=== PATIENT | female | born 1930 | race African-American/Black ===

== ENCOUNTER 2016-11-06 13:43 | Inpatient (IN) | payer MEDICARE, BC ==
[~2016-11-06] VITALS: Ht 160 cm; Wt 86.6 kg
[~2016-11-06 13:43] MED LIST: ALD50 PO; ASPI-1159 PO; COR3 PO; FURO40TA5 PO; LOSA25TA12 PO; POTA20TA75 PO
[2016-11-06 15:35] LABS: BASOPHILS % 0.5 % (0.0-2.0); EOSINOPHILS % 0.5 % (0.0-5.0); HEMATOCRIT. 36.9 % (36.0-48.0); HEMOGLOBIN. 12.2 g/dL (12.0-16.0); LYMPHOCYTES % 15.1 % (20.0-50.0); MEAN CORPUSCULAR HEMOGLOBIN 29.5 pg (28.0-32.0); MEAN CORPUSCULAR VOLUME 89.5 fL (81.0-99.0); MEAN PLATELET VOLUME 9.3 fl (7.4-10.4); MONOCYTES % 5.5 % (2.0-8.0); NEUTROPHILS % 78.4 % (40.0-76.0); PLATELET 157 x1000/uL (130-400); RED BLOOD CELL COUNT 4.12 mill/uL (4.2-5.4); RED CELL DISTRIBUTION WIDTH 15.2 % (11.6-14.6)
[2016-11-06 15:36] LABS: CLARITY URINE CLEAR (CLEAR); COLOR URINE YELLOW (YELLOW); GLUCOSE URINE NEGATIVE (NEGATIVE); KETONES URINE NEGATIVE (NEGATIVE); LEUKOCYTE ESTERASE URINE NEGATIVE (NEGATIVE); NITRITE URINE NEGATIVE (NEGATIVE); OCCULT BLOOD URINE NEGATIVE (NEGATIVE); PH URINE 6.5 (4.5-8.0); PROTEIN URINE NEGATIVE (NEGATIVE); SPECIFIC GRAVITY URINE 1.008 (1.005-1.030); UROBILINOGEN URINE 0.2 E.U./dL (0.2-1.0)
[2016-11-06 15:36] LABS: INR 1.1; PARTIAL THROMBOPLASTIN TIME 28.9 sec (24.0-34.0); PROTHROMBIN TIME 11.3 sec
[2016-11-06 15:38] LABS: CHLORIDE 103 mEq/L (98-107)
[2016-11-06 15:42] LABS: CARBON DIOXIDE 26 mEq/L (21-32)
[2016-11-06 15:50] LABS: CREATINE KINASE 105 IU/L (26-192)
[2016-11-06 15:51] LABS: CREATINE KINASE MB FRACTION 1.2 ng/mL (0.5-3.6)
[2016-11-06] MEDS: PANTOPRAZOLE SODIUM 40 MG/VIAL IV SCH (16:15)
[2016-11-06] MEDS ORDERED: CLONIDINE 0.1MG TABLET PO PRN (16:15)
[2016-11-06] MEDS ORDERED: ACETAMINOPHEN 325MG TABLET PO PRN (16:15)
[2016-11-06] MEDS ORDERED: IPRATROPIUM/ALBUTEROL 0.5-3(2.5)MG/3ML NEB INH PRN (16:15)
[2016-11-06] MEDS ORDERED: ONDANSETRON HCL 4MG/2ML VIAL IV PRN (16:15)
[2016-11-06] MEDS ORDERED: SODIUM CHLORIDE 0.9% 250 ML IV ONE (16:17)
[2016-11-06] MEDS: HYDROCODONE/ACETAMINOPHEN 5/325MG TABLET PO PRN (19:18)
[2016-11-06 20:00] VITALS: BP 117/66
[2016-11-06 21:00] VITALS: BP 117/66
[2016-11-06] MEDS ORDERED: HYDR-4005 PO (22:15)
[2016-11-06] MEDS ORDERED: [UNRECOGNIZED DRUG - CODE] PO (22:15)
[2016-11-06] MEDS ORDERED: PREG75CA PO (22:17)
[2016-11-06] MEDS: METRONIDAZOLE 500 MG PREMIX 100 ML IV SCH (23:18)
[2016-11-07] VITALS: BP 92/52
[2016-11-07] MEDS ORDERED: SODIUM CHLORIDE 0.9% 250 ML IV NR ×2 (03:30→04:30)
[2016-11-07 04:00] VITALS: BP 96/57
[2016-11-07] MEDS: METRONIDAZOLE 500 MG PREMIX 100 ML IV SCH ×2 (06:49→14:00)
[2016-11-07 06:54] LABS: BASOPHILS % 0.6 % (0.0-2.0); HEMATOCRIT. 32.4 % (36.0-48.0); LYMPHOCYTES % 24.7 % (20.0-50.0); MEAN CORPUSCULAR HEMOGLOBIN 30.1 pg (28.0-32.0); MEAN CORPUSCULAR VOLUME 88.9 fL (81.0-99.0); MEAN PLATELET VOLUME 9.9 fl (7.4-10.4); MONOCYTES % 8.3 % (2.0-8.0); NEUTROPHILS % 65.4 % (40.0-76.0); PLATELET 136 x1000/uL (130-400); RED BLOOD CELL COUNT 3.64 mill/uL (4.2-5.4); RED CELL DISTRIBUTION WIDTH 15.5 % (11.6-14.6)
[2016-11-07 07:36] LABS: T4 FREE 0.98 ng/dL (0.76-1.46); TROPONIN I 0.04 ng/mL (0.00-0.04)
[2016-11-07 08:00] VITALS: BP 97/50
[2016-11-07] MEDS: PANTOPRAZOLE SODIUM 40 MG/VIAL IV SCH (08:44)
[2016-11-07] MEDS: HYDROCODONE/ACETAMINOPHEN 5/325MG TABLET PO PRN (08:58)
[2016-11-07] MEDS ORDERED: POTASSIUM CHLORIDE 20MEQ TABLET SR PO SCH (09:00)
[2016-11-07] MEDS ORDERED: FUROSEMIDE 40MG TABLET PO SCH (09:00)
[2016-11-07] MEDS ORDERED: CARVEDILOL 3.125 MG TABLET PO SCH (09:00)
[2016-11-07 12:00] VITALS: BP 101/51
[2016-11-07 13:36] VITALS: BP 101/51
[2016-11-07 16:00] VITALS: BP 121/67
== END 2016-11-07 14:27 | disposition home or self-care (01) | DRG 378 ==
LOC: ER 15:19 → 5WST 16:29 → ENRESERV 18:09
PROVIDERS: ADMIT Internal Medicine; ATTEND Internal Medicine
DX: K92.2 Gastrointestinal hemorrhage, unspecified (principal); I42.0 Dilated cardiomyopathy; K52.9 Noninfective gastroenteritis and colitis, unspecified; E78.5 Hyperlipidemia, unspecified; I45.10 Unspecified right bundle-branch block; I50.9 Heart failure, unspecified; M54.30 Sciatica, unspecified side; K21.9 Gastro-esophageal reflux disease without esophagitis; M19.90 Unspecified osteoarthritis, unspecified site; Z96.659 Presence of unspecified artificial knee joint; G62.9 Polyneuropathy, unspecified; M51.37 Other intervertebral disc degeneration, lumbosacral region; Z90.49 Acquired absence of other specified parts of digestive tract; Z88.8 Allergy status to other drugs, medicaments and biological substances; Z79.82 Long term (current) use of aspirin; Z79.899 Other long term (current) drug therapy
CPT/HCPCS: 36415; 71010; 74176; 80048; 80053; 80061; 81003; 82550; 82553; 83690; 84439; 84443; 84484; 85025; 85610; 85730; 86850; 86900; 87086; 93005; 96360; 96361; 99285; C9113; J3490; J7050

== ENCOUNTER 2017-05-22 13:40 | Inpatient (IN) | payer MEDICARE, BC ==
[~2017-05-22] VITALS: Ht 162.6 cm; Wt 71.2 kg
[~2017-05-22 13:40] MED LIST changes: +ALBU18HF2 IH; -FURO40TA5 PO; +HYDR-4005 PO; -LOSA25TA12 PO; +MULT-1146 PO; +POTA20TA12 PO; -POTA20TA75 PO; +PREG75CA PO; +PROM6.25 PO; +SACU1TAB PO
[2017-05-22 14:30] VITALS: BP 70/48
[2017-05-22 14:45] VITALS: BP 74/48
[2017-05-22] MEDS ORDERED: IPRATROPIUM/ALBUTEROL 0.5-3(2.5)MG/3ML NEB HHN PRN (15:00)
[2017-05-22] MEDS ORDERED: ONDANSETRON 4MG ODT PO PRN (15:00)
[2017-05-22] MEDS ORDERED: ACETAMINOPHEN 325MG TABLET PO PRN (15:00)
[2017-05-22] MEDS ORDERED: BISACODYL 5MG TABLET PO PRN (15:00)
[2017-05-22] MEDS ORDERED: GUAIFENESIN/CODEINE 200-20MG/10ML UDC PO PRN (15:00)
[2017-05-22] MEDS ORDERED: THROAT LOZENGES-BENZOCAINE/MENTH/CETYLPYRD CL LOZENGES MM PRN (15:00)
[2017-05-22] MEDS ORDERED: MAGNESIUM/ALUMINUM HYDROXIDE/SIMETHICONE 30ML UDC PO PRN (15:00)
[2017-05-22] MEDS ORDERED: METHYLPREDNISOLONE SOD SUCC 40 MG/ML VIAL IV SCH (15:15)
[2017-05-22] MEDS: SODIUM CHLORIDE 0.45% 1,000 ML IV SCH (15:35)
[2017-05-22 16:00] VITALS: BP 80/52
[2017-05-22 18:00] VITALS: BP 83/54
[2017-05-22] MEDS: DOCUSATE SODIUM 100MG CAPSULE PO SCH (18:17)
[2017-05-22 20:00] VITALS: BP 77/45
[2017-05-22] MEDS ORDERED: CEFEPIME 1,000 MG in DEXTROSE 5% WATER 50 ML IV SCH ×4 (21:00)
[2017-05-22] MEDS ORDERED: SODIUM CHLORIDE 0.9% 1000ML BAG (SEPSIS BOLUS) IV NR (22:00)
[2017-05-23 08:38] VITALS: BP 78/44
[2017-05-23 08:45] VITALS: BP_SYST 63; BP_SYST 64; BP_SYST 70; BP_DIAS 38; BP_DIAS 45; BP_DIAS 46
[2017-05-23] MEDS ORDERED: ENOXAPARIN 40MG/0.4ML SYR SUBCUT SCH (09:00)
[2017-05-23] MEDS ORDERED: METHYLPREDNISOLONE SOD SUCC 40 MG/ML VIAL IV SCH (09:00)
[2017-05-23] MEDS ORDERED: ASPIRIN 81MG TABLET PO SCH (09:00)
[2017-05-23] MEDS ORDERED: MEGESTROL ACETATE 400 MG/10 ML UDC PO SCH (09:00)
[2017-05-23] MEDS: SODIUM CHLORIDE 0.45% 1,000 ML IV SCH (09:04)
[2017-05-23] MEDS: DOCUSATE SODIUM 100MG CAPSULE PO SCH (09:04)
[2017-05-23 09:15] VITALS: BP 71/38
[2017-05-23 09:56] LABS: BASOPHILS % 0.4 % (0.0-2.0); EOSINOPHILS % 0.1 % (0.0-5.0); HEMATOCRIT. 44.2 % (36.0-48.0); HEMOGLOBIN. 14.6 g/dL (12.0-16.0); LYMPHOCYTES % 12.5 % (20.0-50.0); MEAN CORPUSCULAR VOLUME 84.6 fL (81.0-99.0); MEAN PLATELET VOLUME 10.8 fl (7.4-10.4); MONOCYTES % 6.4 % (2.0-8.0); NEUTROPHILS % 80.6 % (40.0-76.0); PLATELET 182 x1000/uL (130-400); RED BLOOD CELL COUNT 5.22 mill/uL (4.2-5.4); RED CELL DISTRIBUTION WIDTH 14.9 % (11.6-14.6)
[2017-05-23 10:08] LABS: CHLORIDE 95 mEq/L (98-107)
[2017-05-23 10:50] VITALS: BP 78/48
[2017-05-23 11:14] VITALS: BP 78/48
[2017-05-23 15:16] LABS: HEMATOCRIT. 41.8 % (36.0-48.0); HEMOGLOBIN. 13.8 g/dL (12.0-16.0); MEAN CORPUSCULAR HEMOGLOBIN 27.8 pg (28.0-32.0); MEAN CORPUSCULAR VOLUME 84.1 fL (81.0-99.0); PLATELET 174 x1000/uL (130-400); RED BLOOD CELL COUNT 4.97 mill/uL (4.2-5.4); RED CELL DISTRIBUTION WIDTH 14.8 % (11.6-14.6)
[2017-05-23 15:28] LABS: TROPONIN I 0.09 ng/mL (0.00-0.04)
[2017-05-23 17:23] LABS: ATYPICAL LYMPHOCYTES 2; PLATELET ESTIMATE NORMAL
== END 2017-05-23 12:10 | disposition short-term general hospital (02) | DRG 193 ==
PROVIDERS: ADMIT Psychiatry & Neurology Neurology; ATTEND Internal Medicine
DX: J18.9 Pneumonia, unspecified organism (principal); I50.23 Acute on chronic systolic (congestive) heart failure; E87.2 Acidosis; I95.9 Hypotension, unspecified; E87.5 Hyperkalemia; E87.1 Hypo-osmolality and hyponatremia; G62.9 Polyneuropathy, unspecified; I11.0 Hypertensive heart disease with heart failure; I42.0 Dilated cardiomyopathy; J44.0 Chronic obstructive pulmonary disease with (acute) lower respiratory infection; N39.0 Urinary tract infection, site not specified; R53.81 Other malaise; Z96.652 Presence of left artificial knee joint; I27.29 Other secondary pulmonary hypertension; I27.81 Cor pulmonale (chronic); I45.10 Unspecified right bundle-branch block; M13.0 Polyarthritis, unspecified; Z79.82 Long term (current) use of aspirin; Z79.899 Other long term (current) drug therapy; Z88.8 Allergy status to other drugs, medicaments and biological substances
CPT/HCPCS: 36415; 80048; 80053; 84484; 85007; 85025; 85027; 93005; 97162; J0692; J1650; J2920; J7030; J7060

== ENCOUNTER 2018-03-10 18:51 | Inpatient (IN) | payer MEDICARE, BC ==
[~2018-03-10] VITALS: Ht 162.6 cm; Wt 72.6 kg
[~2018-03-10 18:51] MED LIST changes: -ALD50 PO; -COR3 PO; -PROM6.25 PO; -SACU1TAB PO
[2018-03-10 20:46] LABS: BASOPHILS % 1.3 % (0.0-2.0); EOSINOPHILS % 0.3 % (0.0-5.0); HEMATOCRIT. 41.5 % (36.0-48.0); HEMOGLOBIN. 13.5 g/dL (12.0-16.0); LYMPHOCYTES % 21.7 % (20.0-50.0); MEAN CORPUSCULAR VOLUME 85.9 fL (81.0-99.0); MEAN PLATELET VOLUME 9.1 fl (7.4-10.4); MONOCYTES % 6.4 % (2.0-8.0); NEUTROPHILS % 70.3 % (40.0-76.0); PLATELET 152 x1000/uL (130-400); RED BLOOD CELL COUNT 4.83 mill/uL (4.2-5.4); RED CELL DISTRIBUTION WIDTH 16.4 % (11.6-14.6)
[2018-03-10 20:50] LABS: CHLORIDE 105 mEq/L (98-107); INR 1.2
[2018-03-11] VITALS (40 sets, daily range): BP systolic 65–149; BP diastolic 35–82
[2018-03-11] MEDS ORDERED: HYDROCODONE/ACETAMINOPHEN 5/325MG TABLET PO PRN (05:00)
[2018-03-11] MEDS ORDERED: DOBUTAMINE 250MG PREMIX 250 ML IV SCH (06:00)
[2018-03-11] MEDS: FUROSEMIDE 40MG/4ML VIAL IVP SCH ×3 (07:01→21:28)
[2018-03-11] MEDS: MIDODRINE HCL 5MG TABLET PO SCH ×3 (08:07→17:36)
[2018-03-11] MEDS ORDERED: GLYC30DR OP (08:16)
[2018-03-11] MEDS ORDERED: FURO-151 MT (08:16)
[2018-03-11] MEDS ORDERED: DICL100G16 TP (08:16)
[2018-03-11] MEDS ORDERED: COR6 MT (08:16)
[2018-03-11] MEDS ORDERED: ACET-2708 MT (08:16)
[2018-03-11] MEDS ORDERED: FURO-152 MT (08:16)
[2018-03-11] MEDS ORDERED: SACU1TAB MT (08:16)
[2018-03-11] MEDS ORDERED: SPIR50TA5 MT (08:16)
[2018-03-11] MEDS ORDERED: MIDO5TAB MT (08:16)
[2018-03-11] MEDS ORDERED: ENOXAPARIN 30MG/0.3ML SYR SUBCUT SCH (09:00)
[2018-03-11] MEDS ORDERED: ENOXAPARIN 40MG/0.4ML SYR SUBCUT SCH (09:00)
[2018-03-11 11:08] LABS: BG BASE EXCESS -0.6 mmol/L (-2.0-2.0); BG HCO3 ACT 23.6 mmol/L (22.0-26.0); BG METHEMOGLOBIN 0.3 % (0.0-1.5); BG OXYGEN SATURATION 95.9 % (92.0-98.5); BG OXYHEMOGLOBIN 94.7 % (94.0-97.0); BG PCO2 37.4 mmHg (35.0-45.0); BG PH 7.418 (7.350-7.450); BG PO2 79.8 mmHg (75.0-100.0); BG SAMPLE SITE RIGHT BRACHIAL; BG TOTAL HEMOGLOBIN 12.7 g/dL (12.0-18.0); BG VENT MODE ROOM AIR
[2018-03-11 11:45] LABS: HEMOGLOBIN 11.7 g/dL (12.0-16.0); MEAN CORPUSCULAR HEMOGLOBIN 28.3 pg (28.0-32.0); MEAN CORPUSCULAR VOLUME 84.8 fL (81.0-99.0); PLATELET 169 x1000/uL (130-400); RED BLOOD CELL COUNT 4.13 mill/uL (4.2-5.4); RED CELL DISTRIBUTION WIDTH 16.5 % (11.6-14.6)
[2018-03-11] MEDS: DOBUTAMINE 250MG PREMIX 250 ML IV SCH ×2 (13:42→21:01)
[2018-03-11] MEDS ORDERED: DIPHENHYDRAMINE 50MG/ML VIAL IV PRN (15:45)
[2018-03-11] MEDS ORDERED: ONDANSETRON 4MG ODT PO PRN (15:45)
[2018-03-11] MEDS ORDERED: IPRATROPIUM/ALBUTEROL 0.5-3(2.5)MG/3ML NEB HHN PRN (15:45)
[2018-03-11] MEDS ORDERED: MAGNESIUM/ALUMINUM HYDROXIDE/SIMETHICONE 30ML UDC PO PRN (15:45)
[2018-03-11] MEDS ORDERED: ACETAMINOPHEN 650MG SUPP PR PRN (15:45)
[2018-03-11] MEDS ORDERED: DOCUSATE SODIUM 100MG CAPSULE PO PRN (15:45)
[2018-03-11 17:00] LABS: CLARITY URINE CLEAR (CLEAR); COLOR URINE YELLOW (YELLOW); KETONES URINE NEGATIVE (NEGATIVE); LEUKOCYTE ESTERASE URINE 2+ (NEGATIVE); NITRITE URINE NEGATIVE (NEGATIVE); OCCULT BLOOD URINE 2+ (NEGATIVE); PROTEIN URINE NEGATIVE (NEGATIVE); SPECIFIC GRAVITY URINE 1.004 (1.005-1.030); UROBILINOGEN URINE 0.2 E.U./dL (0.2-1.0)
[2018-03-11 17:12] LABS: *BARBITURATES SCREEN URINE NEGATIVE (NEGATIVE)
[2018-03-11 17:14] LABS: *AMPHETAMINES SCREEN URINE NEGATIVE (NEGATIVE); *BENZODIAZEPINES SCREEN URINE NEGATIVE (NEGATIVE); *COCAINE SCREEN URINE NEGATIVE (NEGATIVE); METHADONE URINE SCREEN NEGATIVE (NEGATIVE); OPIATES URINE SCREEN NEGATIVE (NEGATIVE); PHENCYCLIDINE URINE SCREEN NEGATIVE (NEGATIVE)
[2018-03-11 17:15] LABS: CANNABINOID URINE SCREEN NEGATIVE (NEGATIVE)
[2018-03-11] MEDS: PREGABALIN 75MG CAPSULE PO SCH (21:28)
[2018-03-12] VITALS (20 sets, daily range): BP systolic 80–135; BP diastolic 33–85
[2018-03-12] MEDS: ACETAMINOPHEN 325MG TABLET PO PRN (04:49)
[2018-03-12] MEDS: FUROSEMIDE 40MG/4ML VIAL IVP SCH (06:16)
[2018-03-12] MEDS: DOBUTAMINE 250MG PREMIX 250 ML IV SCH ×2 (07:07→17:09)
[2018-03-12 07:46] LABS: BASOPHILS % 1.2 % (0.0-2.0); EOSINOPHILS % 1.7 % (0.0-5.0); HEMATOCRIT. 35.6 % (36.0-48.0); HEMOGLOBIN. 11.7 g/dL (12.0-16.0); LYMPHOCYTES % 41.7 % (20.0-50.0); MEAN CORPUSCULAR HEMOGLOBIN 27.7 pg (28.0-32.0); MEAN CORPUSCULAR VOLUME 84.6 fL (81.0-99.0); MEAN PLATELET VOLUME 9.2 fl (7.4-10.4); MONOCYTES % 10.1 % (2.0-8.0); NEUTROPHILS % 45.3 % (40.0-76.0); PLATELET 165 x1000/uL (130-400); RED BLOOD CELL COUNT 4.21 mill/uL (4.2-5.4); RED CELL DISTRIBUTION WIDTH 16.6 % (11.6-14.6)
[2018-03-12] MEDS: MULTIVITAMINS,THER W-MINERALS TABLET PO SCH (08:39)
[2018-03-12] MEDS: ASPIRIN 81MG TABLET PO SCH (08:41)
[2018-03-12] MEDS: ENOXAPARIN 40MG/0.4ML SYR SUBCUT SCH (08:41)
[2018-03-12] MEDS: MIDODRINE HCL 5MG TABLET PO SCH ×3 (08:42→17:09)
[2018-03-12] MEDS ORDERED: SODIUM CHLORIDE 0.9% 250 ML IV ONE (09:30)
[2018-03-12] MEDS ORDERED: SODIUM CHLORIDE 0.9% 250 ML IV PRN (09:45)
[2018-03-12] MEDS: PREGABALIN 75MG CAPSULE PO SCH (21:03)
[2018-03-13] VITALS (24 sets, daily range): BP systolic 69–135; BP diastolic 34–95
[2018-03-13] MEDS: ACETAMINOPHEN 325MG TABLET PO PRN (00:47)
[2018-03-13] MEDS: DOBUTAMINE 250MG PREMIX 250 ML IV SCH (06:21)
[2018-03-13] MEDS ORDERED: DOBUTAMINE 250MG PREMIX 250 ML IV SCH (06:54)
[2018-03-13] MEDS: SODIUM CHLORIDE 0.9% 250 ML IV ONE ×2 (07:05→07:17)
[2018-03-13] MEDS ORDERED: DOBUTAMINE 250MG PREMIX 250 ML IV PRN (07:15)
[2018-03-13 07:31] LABS: BASOPHILS % 0.9 % (0.0-2.0); EOSINOPHILS % 1.9 % (0.0-5.0); HEMATOCRIT. 34.7 % (36.0-48.0); HEMOGLOBIN. 11.8 g/dL (12.0-16.0); LYMPHOCYTES % 38.1 % (20.0-50.0); MEAN CORPUSCULAR HEMOGLOBIN 28.5 pg (28.0-32.0); MEAN CORPUSCULAR VOLUME 83.7 fL (81.0-99.0); MEAN PLATELET VOLUME 9.4 fl (7.4-10.4); MONOCYTES % 11.6 % (2.0-8.0); NEUTROPHILS % 47.5 % (40.0-76.0); PLATELET 169 x1000/uL (130-400); RED BLOOD CELL COUNT 4.15 mill/uL (4.2-5.4); RED CELL DISTRIBUTION WIDTH 16.3 % (11.6-14.6)
[2018-03-13] MEDS: ASPIRIN 81MG TABLET PO SCH (08:53)
[2018-03-13] MEDS: MULTIVITAMINS,THER W-MINERALS TABLET PO SCH (08:53)
[2018-03-13] MEDS: FUROSEMIDE 40MG/4ML VIAL IVP SCH (08:53)
[2018-03-13] MEDS: MIDODRINE HCL 5MG TABLET PO SCH ×3 (08:53→16:43)
[2018-03-13] MEDS: ENOXAPARIN 40MG/0.4ML SYR SUBCUT SCH (08:54)
[2018-03-13] MEDS: PREGABALIN 75MG CAPSULE PO SCH (20:26)
[2018-03-14] VITALS (14 sets, daily range): BP systolic 83–124; BP diastolic 24–94
[2018-03-14] MEDS: FUROSEMIDE 40MG/4ML VIAL IVP SCH (09:04)
[2018-03-14] MEDS: MULTIVITAMINS,THER W-MINERALS TABLET PO SCH (09:05)
[2018-03-14] MEDS: ASPIRIN 81MG TABLET PO SCH (09:05)
[2018-03-14] MEDS: MIDODRINE HCL 5MG TABLET PO SCH ×3 (09:05→17:16)
[2018-03-14] MEDS: ENOXAPARIN 40MG/0.4ML SYR SUBCUT SCH (09:05)
[2018-03-14] MEDS: ACETAMINOPHEN 325MG TABLET PO PRN (17:16)
[2018-03-14] MEDS: PREGABALIN 75MG CAPSULE PO SCH (20:13)
[2018-03-15] VITALS (14 sets, daily range): BP systolic 81–124; BP diastolic 36–70
[2018-03-15] MEDS: MIDODRINE HCL 5MG TABLET PO SCH ×3 (08:40→16:49)
[2018-03-15] MEDS: MULTIVITAMINS,THER W-MINERALS TABLET PO SCH (08:41)
[2018-03-15] MEDS: ASPIRIN 81MG TABLET PO SCH (08:41)
[2018-03-15] MEDS: ENOXAPARIN 40MG/0.4ML SYR SUBCUT SCH (08:41)
[2018-03-15] MEDS ORDERED: FUROSEMIDE 40MG TABLET PO SCH (09:00)
[2018-03-15] MEDS ORDERED: MIDODRINE HCL 5MG TABLET PO NR (12:30)
[2018-03-15] MEDS: ACETAMINOPHEN 325MG TABLET PO PRN (14:47)
[2018-03-15 15:51] LABS: HEMATOCRIT 42.3 % (36.0-48.0); HEMOGLOBIN 14.1 g/dL (12.0-16.0); MEAN CORPUSCULAR HEMOGLOBIN 28.2 pg (28.0-32.0); MEAN CORPUSCULAR VOLUME 84.7 fL (81.0-99.0); PLATELET 203 x1000/uL (130-400); RED BLOOD CELL COUNT 4.99 mill/uL (4.2-5.4); RED CELL DISTRIBUTION WIDTH 16.6 % (11.6-14.6)
[2018-03-16] MEDS ORDERED: ENOXAPARIN 30MG/0.3ML SYR SUBCUT SCH (09:00)
== END 2018-03-15 18:22 | disposition home or self-care (01) | DRG 291 ==
LOC: ER 18:51 → EDBEDREQ 21:14 → EDBEDREQTM 21:14 → EDBEDREQSVC 21:27 → 3WST 21:27 → ENRESERV 22:58 → 3WST 03-11 03:07
PROVIDERS: ADMIT Internal Medicine; ATTEND Internal Medicine
DX: I13.0 Hypertensive heart and chronic kidney disease with heart failure and stage 1 through stage 4 chronic kidney disease, or unspecified chronic kidney disease (principal); I50.43 Acute on chronic combined systolic (congestive) and diastolic (congestive) heart failure; E87.1 Hypo-osmolality and hyponatremia; I31.3 Pericardial effusion (noninflammatory); I47.1 Supraventricular tachycardia; L97.909 Non-pressure chronic ulcer of unspecified part of unspecified lower leg with unspecified severity; I42.0 Dilated cardiomyopathy; I95.9 Hypotension, unspecified; I27.20 Pulmonary hypertension, unspecified; R06.03 Acute respiratory distress; I73.9 Peripheral vascular disease, unspecified; I27.81 Cor pulmonale (chronic); M54.30 Sciatica, unspecified side; M19.90 Unspecified osteoarthritis, unspecified site; D72.819 Decreased white blood cell count, unspecified; E78.5 Hyperlipidemia, unspecified; I45.10 Unspecified right bundle-branch block; I50.82 Biventricular heart failure; I87.2 Venous insufficiency (chronic) (peripheral); N18.9 Chronic kidney disease, unspecified; Z96.659 Presence of unspecified artificial knee joint; Z99.81 Dependence on supplemental oxygen; Z88.8 Allergy status to other drugs, medicaments and biological substances; Z79.82 Long term (current) use of aspirin
CPT/HCPCS: 36415; 36600; 71045; 80048; 80061; 80305; 82375; 82805; 83036; 83880; 84443; 84484; 85027; 93005; 93306; 93923; 93970; 97116; 97162; 99291; A6261; J1250; J1650; J1940; J7040; J7050; Q0162; A4315

== ENCOUNTER 2018-05-22 16:37 | Inpatient (IN) | payer MEDICARE, BC ==
[~2018-05-22] VITALS: Ht 165.1 cm; Wt 70.4 kg
[~2018-05-22 16:37] MED LIST changes: +ACET-2708 MT; +DICL100G16 TP; +GLYC30DR OP; -POTA20TA12 PO
[2018-05-22] MEDS ORDERED: PREG75CA PO (17:00)
[2018-05-22] MEDS ORDERED: FURO20TA4 PO (17:00)
[2018-05-22] MEDS ORDERED: MIDO5TAB PO (17:00)
[2018-05-22] MEDS ORDERED: MULT1TAB63 PO (17:00)
[2018-05-22] MEDS ORDERED: PRED10TA23 PO (17:01)
[2018-05-22] MEDS ORDERED: AM500 PO (17:01)
[2018-05-22] MEDS ORDERED: FUROSEMIDE 40MG/4ML VIAL IV ONE (18:00)
[2018-05-22] MEDS ORDERED: ASPIRIN 81MG TABLET PO ONE (18:00)
[2018-05-22] MEDS ORDERED: NITROGLYCERIN OINT 1GM/INCH UDPKT TD ONE (18:00)
[2018-05-22 19:54] LABS: EOSINOPHILS % 0.2 % (0.0-5.0); HEMATOCRIT. 38.6 % (36.0-48.0); HEMOGLOBIN. 12.4 g/dL (12.0-16.0); LYMPHOCYTES % 36.1 % (20.0-50.0); MEAN CORPUSCULAR HEMOGLOBIN 27.4 pg (28.0-32.0); MEAN CORPUSCULAR VOLUME 85.1 fL (81.0-99.0); MEAN PLATELET VOLUME 9.3 fl (7.4-10.4); MONOCYTES % 6.5 % (2.0-8.0); NEUTROPHILS % 56.2 % (40.0-76.0); PLATELET 181 x1000/uL (130-400); RED BLOOD CELL COUNT 4.54 mill/uL (4.2-5.4)
[2018-05-22 19:59] LABS: CHLORIDE 100 mEq/L (98-107)
[2018-05-22 20:03] LABS: INR 1.4; PARTIAL THROMBOPLASTIN TIME 28.1 sec (23.4-31.0)
[2018-05-22] MEDS ORDERED: POTASSIUM CHLORIDE 20MEQ TABLET SR PO ONE (20:45)
[2018-05-23 09:00] VITALS: BP 120/73
[2018-05-23 10:00] VITALS: BP 112/85
[2018-05-23] MEDS ORDERED: FUROSEMIDE 40MG/4ML VIAL IVP SCH (11:45)
[2018-05-23 12:00] VITALS: BP 112/85
[2018-05-23] MEDS ORDERED: POTASSIUM CHLORIDE 20MEQ TABLET SR PO SCH (12:00)
[2018-05-23] MEDS: ASPIRIN 81MG EC TABLET PO SCH (12:42)
[2018-05-23] MEDS: ENOXAPARIN 30MG/0.3ML SYR SUBCUT SCH (12:44)
[2018-05-23] MEDS ORDERED: HYDROCODONE/ACETAMINOPHEN 5/325MG TABLET PO PRN (14:45)
[2018-05-23] MEDS ORDERED: ACETAMINOPHEN 325MG TABLET PO PRN (14:45)
[2018-05-23] MEDS ORDERED: DOBUTAMINE 250MG PREMIX 250 ML IV PRN (14:45)
[2018-05-23] MEDS ORDERED: ACETAMINOPHEN 650MG SUPP PR PRN (14:45)
[2018-05-23] MEDS ORDERED: DIPHENHYDRAMINE 50MG/ML VIAL IV PRN (14:45)
[2018-05-23] MEDS ORDERED: LEVOFLOXACIN 500MG PREMIX 100 ML IV SCH (15:00)
[2018-05-23 15:06] LABS: BG BASE EXCESS 2.5 mmol/L (-2.0-2.0); BG CARBOXYHEMOGLOBIN 1.4 % (0.5-1.5); BG DEOXYHEMOGLOBIN 5.8 % (0.0-5.0); BG HCO3 ACT 26.7 mmol/L (22.0-26.0); BG METHEMOGLOBIN 0.3 % (0.0-1.5); BG OXYGEN SATURATION 94.1 % (92.0-98.5); BG OXYHEMOGLOBIN 92.5 % (94.0-97.0); BG PH 7.443 (7.350-7.450); BG SAMPLE SITE RIGHT RADIAL; BG TOTAL HEMOGLOBIN 13.2 g/dL (12.0-18.0); BG VENT MODE ROOM AIR
[2018-05-23] MEDS ORDERED: DOBUTAMINE 250MG PREMIX 250 ML IV SCH (15:15)
[2018-05-23 16:00] VITALS: BP 95/61
[2018-05-23 17:04] LABS: HEMATOCRIT 41.6 % (36.0-48.0); HEMOGLOBIN 13.3 g/dL (12.0-16.0); MEAN CORPUSCULAR HEMOGLOBIN 27.5 pg (28.0-32.0); MEAN CORPUSCULAR VOLUME 85.6 fL (81.0-99.0); PLATELET 191 x1000/uL (130-400); RED BLOOD CELL COUNT 4.85 mill/uL (4.2-5.4); RED CELL DISTRIBUTION WIDTH 18.3 % (11.6-14.6)
[2018-05-23] MEDS: IPRATROPIUM/ALBUTEROL 0.5-3(2.5)MG/3ML NEB HHN SCH ×2 (17:07→21:00)
[2018-05-23] MEDS: METHYLPREDNISOLONE SOD SUCC 40 MG/ML VIAL IV SCH ×2 (17:11→21:51)
[2018-05-23 20:00] VITALS: BP 103/38
[2018-05-23] MEDS: CARVEDILOL 3.125 MG TABLET PO SCH (20:19)
[2018-05-23 22:00] VITALS: BP 104/77
[2018-05-24] VITALS (12 sets, daily range): BP systolic 91–118; BP diastolic 39–81
[2018-05-24] MEDS: IPRATROPIUM/ALBUTEROL 0.5-3(2.5)MG/3ML NEB HHN SCH ×4 (00:54→20:45)
[2018-05-24 05:43] LABS: CHLORIDE 103 mEq/L (98-107)
[2018-05-24 05:52] LABS: CREATINE KINASE 42 IU/L (26-192)
[2018-05-24 05:56] LABS: CREATINE KINASE MB FRACTION < 1.0 ng/mL (0.5-3.6)
[2018-05-24 06:20] LABS: BASOPHILS % 0.4 % (0.0-2.0); HEMATOCRIT. 36.6 % (36.0-48.0); HEMOGLOBIN. 11.9 g/dL (12.0-16.0); LYMPHOCYTES % 13.2 % (20.0-50.0); MEAN CORPUSCULAR HEMOGLOBIN 27.5 pg (28.0-32.0); MEAN CORPUSCULAR VOLUME 85.1 fL (81.0-99.0); MEAN PLATELET VOLUME 9.4 fl (7.4-10.4); MONOCYTES % 1.2 % (2.0-8.0); NEUTROPHILS % 85.2 % (40.0-76.0); PLATELET 171 x1000/uL (130-400); RED BLOOD CELL COUNT 4.31 mill/uL (4.2-5.4); RED CELL DISTRIBUTION WIDTH 17.7 % (11.6-14.6)
[2018-05-24] MEDS: METHYLPREDNISOLONE SOD SUCC 40 MG/ML VIAL IV SCH ×3 (06:25→22:43)
[2018-05-24] MEDS: POTASSIUM CHLORIDE 20MEQ TABLET SR PO SCH ×2 (08:11→17:30)
[2018-05-24] MEDS: CARVEDILOL 3.125 MG TABLET PO SCH ×2 (08:12→21:00)
[2018-05-24] MEDS: ENOXAPARIN 30MG/0.3ML SYR SUBCUT SCH (08:12)
[2018-05-24] MEDS: ASPIRIN 81MG EC TABLET PO SCH (08:12)
[2018-05-24] MEDS ORDERED: ENOXAPARIN 40MG/0.4ML SYR SUBCUT ONE (09:00)
[2018-05-24] MEDS: FUROSEMIDE 40MG/4ML VIAL IVP SCH ×2 (10:28→22:00)
[2018-05-24] MEDS ORDERED: DOBUTAMINE 250MG PREMIX 250 ML IV NR (12:45)
[2018-05-25] VITALS (9 sets, daily range): BP systolic 91–111; BP diastolic 51–80
[2018-05-25] MEDS: IPRATROPIUM/ALBUTEROL 0.5-3(2.5)MG/3ML NEB HHN SCH ×3 (00:08→09:07)
[2018-05-25] MEDS: METHYLPREDNISOLONE SOD SUCC 40 MG/ML VIAL IV SCH ×2 (06:01→14:12)
[2018-05-25 07:58] LABS: HEMATOCRIT. 35.6 % (36.0-48.0); HEMOGLOBIN. 11.5 g/dL (12.0-16.0); MEAN CORPUSCULAR HEMOGLOBIN 27.3 pg (28.0-32.0); MEAN CORPUSCULAR VOLUME 84.9 fL (81.0-99.0); MEAN PLATELET VOLUME 9.1 fl (7.4-10.4); PLATELET 173 x1000/uL (130-400); RED CELL DISTRIBUTION WIDTH 17.8 % (11.6-14.6)
[2018-05-25] MEDS: POTASSIUM CHLORIDE 20MEQ TABLET SR PO SCH (08:52)
[2018-05-25] MEDS: ASPIRIN 81MG EC TABLET PO SCH (08:54)
[2018-05-25] MEDS: ENOXAPARIN 30MG/0.3ML SYR SUBCUT SCH (08:55)
[2018-05-25] MEDS: CARVEDILOL 3.125 MG TABLET PO SCH (08:55)
[2018-05-25] MEDS: FUROSEMIDE 40MG/4ML VIAL IVP SCH (10:20)
[2018-05-25] MEDS ORDERED: LEVOFLOXACIN 250MG PREMIX 50 ML IV SCH ×2 (11:00→15:00)
[2018-05-25 17:08] LABS: PLATELET ESTIMATE NORMAL
== END 2018-05-25 15:57 | disposition home health service (06) | DRG 291 ==
LOC: ER 16:37 → 6WST 20:49 → ENRESERV 05-23 07:37 → 3WST 05-23 19:02
PROVIDERS: ADMIT Ophthalmology; ATTEND Ophthalmology
DX: I13.0 Hypertensive heart and chronic kidney disease with heart failure and stage 1 through stage 4 chronic kidney disease, or unspecified chronic kidney disease (principal); I50.43 Acute on chronic combined systolic (congestive) and diastolic (congestive) heart failure; J44.1 Chronic obstructive pulmonary disease with (acute) exacerbation; N17.9 Acute kidney failure, unspecified; L97.909 Non-pressure chronic ulcer of unspecified part of unspecified lower leg with unspecified severity; J90 Pleural effusion, not elsewhere classified; I42.9 Cardiomyopathy, unspecified; I42.0 Dilated cardiomyopathy; I27.20 Pulmonary hypertension, unspecified; N18.9 Chronic kidney disease, unspecified; E87.6 Hypokalemia; I71.9 Aortic aneurysm of unspecified site, without rupture; E78.5 Hyperlipidemia, unspecified; I25.10 Atherosclerotic heart disease of native coronary artery without angina pectoris; Z79.899 Other long term (current) drug therapy; Z82.49 Family history of ischemic heart disease and other diseases of the circulatory system; Z96.659 Presence of unspecified artificial knee joint; Z88.9 Allergy status to unspecified drugs, medicaments and biological substances; M19.90 Unspecified osteoarthritis, unspecified site; M54.30 Sciatica, unspecified side; I45.10 Unspecified right bundle-branch block; I73.9 Peripheral vascular disease, unspecified
CPT/HCPCS: 36415; 36600; 71045; 71250; 80048; 82375; 82550; 82553; 82805; 83735; 83880; 84484; 85027; 93005; 93970; 94640; 96374; 97162; 99291; C1893; J1250; J1650; J1940; J1956; J2920; J7050; J7620

== ENCOUNTER 2018-09-16 18:37 | Emergency (ER) | payer MEDICARE, BC ==
[~2018-09-16] VITALS: Ht 152.4 cm; Wt 61.0 kg
[~2018-09-16 18:37] MED LIST changes: -ASPI-1159 PO; +ASPI-1393 PO; +MIDO5TAB PO
[2018-09-16] MEDS ORDERED: SODIUM CHLORIDE 0.9% 1,000 ML IV ONE (20:41)
[2018-09-16 22:07] LABS: BASOPHILS % 1.2 % (0.0-2.0); CHLORIDE 107 mEq/L (98-107); EOSINOPHILS % 0.5 % (0.0-5.0); HEMATOCRIT. 43.5 % (36.0-48.0); HEMOGLOBIN. 14.4 g/dL (12.0-16.0); LYMPHOCYTES % 41.3 % (20.0-50.0); MEAN CORPUSCULAR HEMOGLOBIN 29.7 pg (28.0-32.0); MEAN CORPUSCULAR VOLUME 89.6 fL (81.0-99.0); MEAN PLATELET VOLUME 9.5 fl (7.4-10.4); MONOCYTES % 7.4 % (2.0-8.0); NEUTROPHILS % 49.6 % (40.0-76.0); PLATELET 176 x1000/uL (130-400); RED BLOOD CELL COUNT 4.85 mill/uL (4.2-5.4); RED CELL DISTRIBUTION WIDTH 18.6 % (11.6-14.6)
[2018-09-16 22:11] LABS: ETHANOL BLOOD < 10 mg/dL
[2018-09-16 23:21] LABS: CLARITY URINE CLEAR (CLEAR); COLOR URINE DARK YELLOW (YELLOW); KETONES URINE NEGATIVE (NEGATIVE); LEUKOCYTE ESTERASE URINE TRACE (NEGATIVE); NITRITE URINE NEGATIVE (NEGATIVE); OCCULT BLOOD URINE NEGATIVE (NEGATIVE); PH URINE 5.5 (4.5-8.0); PROTEIN URINE TRACE (NEGATIVE); SPECIFIC GRAVITY URINE 1.017 (1.005-1.030)
[2018-09-16 23:36] LABS: *AMPHETAMINES SCREEN URINE NEGATIVE (NEGATIVE); *BARBITURATES SCREEN URINE NEGATIVE (NEGATIVE); *BENZODIAZEPINES SCREEN URINE NEGATIVE (NEGATIVE); *COCAINE SCREEN URINE NEGATIVE (NEGATIVE); METHADONE URINE SCREEN NEGATIVE (NEGATIVE)
[2018-09-16 23:37] LABS: CANNABINOID URINE SCREEN NEGATIVE (NEGATIVE); OPIATES URINE SCREEN NEGATIVE (NEGATIVE); PHENCYCLIDINE URINE SCREEN NEGATIVE (NEGATIVE)
[2018-09-17] MEDS ORDERED: ACETAMINOPHEN 650MG/20.3ML UDC PO ONE (00:15)
[2018-09-17 00:38] VITALS: BP 117/69
== END 2018-09-17 00:46 | disposition home or self-care (01) ==
LOC: ER 18:37
DX: E86.0 Dehydration (principal); R41.82 Altered mental status, unspecified; M19.90 Unspecified osteoarthritis, unspecified site; I50.9 Heart failure, unspecified; Z88.5 Allergy status to narcotic agent; Z79.899 Other long term (current) drug therapy; Z96.659 Presence of unspecified artificial knee joint
CPT/HCPCS: 36415; 70450; 71045; 80053; 80305; 80320; 81003; 82962; 83605; 84443; 84484; 85025; 93005; 96360; 96361; 99284; J7030; G0480

== ENCOUNTER 2018-09-21 01:31 | Inpatient (IN) | payer MEDICARE, BC ==
[~2018-09-21] VITALS: Ht 165.1 cm; Wt 70.8 kg
[2018-09-21] MEDS ORDERED: SODIUM CHLORIDE 0.9% 1,000 ML IV ONE (04:37)
[2018-09-21 05:21] LABS: CLARITY URINE CLEAR (CLEAR); COLOR URINE YELLOW (YELLOW); KETONES URINE NEGATIVE (NEGATIVE); LEUKOCYTE ESTERASE URINE NEGATIVE (NEGATIVE); NITRITE URINE NEGATIVE (NEGATIVE); OCCULT BLOOD URINE NEGATIVE (NEGATIVE); PROTEIN URINE NEGATIVE (NEGATIVE); SPECIFIC GRAVITY URINE 1.016 (1.005-1.030)
[2018-09-21 05:40] LABS: HEMATOCRIT. 43.8 % (36.0-48.0); HEMOGLOBIN. 14.7 g/dL (12.0-16.0); LYMPHOCYTES % 25.4 % (20.0-50.0); MEAN CORPUSCULAR HEMOGLOBIN 29.8 pg (28.0-32.0); MEAN CORPUSCULAR VOLUME 88.6 fL (81.0-99.0); MONOCYTES % 6.4 % (2.0-8.0); NEUTROPHILS % 67.2 % (40.0-76.0); RED BLOOD CELL COUNT 4.94 mill/uL (4.2-5.4); RED CELL DISTRIBUTION WIDTH 17.4 % (11.6-14.6)
[2018-09-21 05:41] LABS: CHLORIDE 109 mEq/L (98-107)
[2018-09-21 06:27] LABS: PLATELET 184 x1000/uL (130-400)
[2018-09-21 06:28] LABS: MEAN PLATELET VOLUME 9.6 fl (7.4-10.4)
[2018-09-21 11:00] VITALS: BP 104/73
[2018-09-21 12:00] VITALS: BP 120/86
[2018-09-21] MEDS ORDERED: HYDROCODONE/ACETAMINOPHEN 5/325MG TABLET PO PRN (12:30)
[2018-09-21] MEDS ORDERED: IPRATROPIUM/ALBUTEROL 0.5-3(2.5)MG/3ML NEB INH PRN (12:30)
[2018-09-21] MEDS ORDERED: ONDANSETRON HCL 4MG/2ML INJ IV PRN (12:30)
[2018-09-21] MEDS: ACETAMINOPHEN 325MG TABLET PO PRN (13:41)
[2018-09-21] MEDS: ASPIRIN 81MG EC TABLET PO SCH (13:41)
[2018-09-21] MEDS: ENOXAPARIN 30MG/0.3ML SYR SUBCUT SCH (13:42)
[2018-09-21] MEDS: DEXT 5%/0.45% NACL 1000ML 1,000 ML IV SCH (13:42)
[2018-09-21 16:00] VITALS: BP 101/67
[2018-09-21 17:11] LABS: CREATINE KINASE MB FRACTION 3.6 ng/mL (0.5-3.6)
[2018-09-21 20:00] VITALS: BP 107/76
[2018-09-22] VITALS (8 sets, daily range): BP systolic 84–118; BP diastolic 55–73
[2018-09-22 07:38] LABS: BASOPHILS % 0.6 % (0.0-2.0); HEMATOCRIT. 39.8 % (36.0-48.0); HEMOGLOBIN. 13.5 g/dL (12.0-16.0); LYMPHOCYTES % 27.7 % (20.0-50.0); MEAN CORPUSCULAR VOLUME 88.7 fL (81.0-99.0); MEAN PLATELET VOLUME 9.6 fl (7.4-10.4); MONOCYTES % 5.8 % (2.0-8.0); NEUTROPHILS % 65.9 % (40.0-76.0); PLATELET 191 x1000/uL (130-400); RED BLOOD CELL COUNT 4.48 mill/uL (4.2-5.4); RED CELL DISTRIBUTION WIDTH 17.2 % (11.6-14.6)
[2018-09-22 08:05] LABS: CHLORIDE 111 mEq/L (98-107)
[2018-09-22 08:13] LABS: LDL CHOLESTEROL 91 mg/dL (5-100)
[2018-09-22 08:15] LABS: T4 FREE 1.13 ng/dL (0.76-1.46)
[2018-09-22 08:19] LABS: HDL CHOLESTEROL 58 mg/dL (40-59)
[2018-09-22] MEDS ORDERED: ASPIRIN 81MG EC TABLET PO SCH (09:00)
[2018-09-22] MEDS: ASPIRIN 81MG EC TABLET PO SCH (09:14)
[2018-09-22] MEDS: DEXT 5%/0.45% NACL 1000ML 1,000 ML IV SCH (09:15)
[2018-09-22] MEDS: DOBUTAMINE 250MG PREMIX 250 ML IV SCH ×2 (13:10→20:13)
[2018-09-22] MEDS: ENOXAPARIN 30MG/0.3ML SYR SUBCUT SCH (15:05)
[2018-09-23] VITALS (13 sets, daily range): BP systolic 91–119; BP diastolic 47–71
[2018-09-23 06:40] LABS: BASOPHILS % 0.9 % (0.0-2.0); EOSINOPHILS % 0.4 % (0.0-5.0); HEMATOCRIT. 37.4 % (36.0-48.0); HEMOGLOBIN. 12.3 g/dL (12.0-16.0); LYMPHOCYTES % 14.2 % (20.0-50.0); MEAN CORPUSCULAR HEMOGLOBIN 29.4 pg (28.0-32.0); MEAN CORPUSCULAR VOLUME 89.3 fL (81.0-99.0); MEAN PLATELET VOLUME 9.3 fl (7.4-10.4); MONOCYTES % 5.2 % (2.0-8.0); NEUTROPHILS % 79.3 % (40.0-76.0); PLATELET 162 x1000/uL (130-400); RED BLOOD CELL COUNT 4.19 mill/uL (4.2-5.4); RED CELL DISTRIBUTION WIDTH 16.6 % (11.6-14.6)
[2018-09-23] MEDS: DOBUTAMINE 250MG PREMIX 250 ML IV SCH ×3 (06:53→23:45)
[2018-09-23] MEDS: ASPIRIN 81MG EC TABLET PO SCH (09:24)
[2018-09-23] MEDS: ENOXAPARIN 30MG/0.3ML SYR SUBCUT SCH (13:25)
[2018-09-24] VITALS (12 sets, daily range): BP systolic 48–112; BP diastolic 18–77
[2018-09-24] MEDS: ACETAMINOPHEN 325MG TABLET PO PRN (05:50)
[2018-09-24 06:54] LABS: BASOPHILS % 0.4 % (0.0-2.0); HEMATOCRIT. 36.7 % (36.0-48.0); HEMOGLOBIN. 12.1 g/dL (12.0-16.0); LYMPHOCYTES % 17.7 % (20.0-50.0); MEAN CORPUSCULAR HEMOGLOBIN 29.4 pg (28.0-32.0); MEAN CORPUSCULAR VOLUME 88.9 fL (81.0-99.0); MEAN PLATELET VOLUME 9.2 fl (7.4-10.4); MONOCYTES % 6.4 % (2.0-8.0); NEUTROPHILS % 74.5 % (40.0-76.0); PLATELET 162 x1000/uL (130-400); RED BLOOD CELL COUNT 4.12 mill/uL (4.2-5.4)
[2018-09-24] MEDS: DOBUTAMINE 250MG PREMIX 250 ML IV SCH (07:40)
[2018-09-24] MEDS: ASPIRIN 81MG EC TABLET PO SCH (08:33)
[2018-09-24] MEDS: ENOXAPARIN 30MG/0.3ML SYR SUBCUT SCH (13:58)
[2018-09-24 15:27] LABS: CLARITY URINE CLOUDY (CLEAR); COLOR URINE YELLOW (YELLOW); KETONES URINE NEGATIVE (NEGATIVE); LEUKOCYTE ESTERASE URINE 3+ (NEGATIVE); NITRITE URINE NEGATIVE (NEGATIVE); OCCULT BLOOD URINE 2+ (NEGATIVE); PH URINE 5.5 (4.5-8.0); PROTEIN URINE TRACE (NEGATIVE); SPECIFIC GRAVITY URINE 1.014 (1.005-1.030); UROBILINOGEN URINE 0.2 E.U./dL (0.2-1.0)
[2018-09-24] MEDS ORDERED: LEVOFLOXACIN 500MG PREMIX 100 ML IV SCH (18:00)
[2018-09-24 19:16] LABS: INR 1.2
[2018-09-24] MEDS: CARVEDILOL 3.125 MG TABLET PO SCH (21:30)
[2018-09-25] VITALS (14 sets, daily range): BP systolic 99–125; BP diastolic 58–85
[2018-09-25 06:37] LABS: BASOPHILS % 0.4 % (0.0-2.0); EOSINOPHILS % 1.9 % (0.0-5.0); HEMATOCRIT. 38.1 % (36.0-48.0); HEMOGLOBIN. 12.7 g/dL (12.0-16.0); LYMPHOCYTES % 20.5 % (20.0-50.0); MEAN CORPUSCULAR VOLUME 90.3 fL (81.0-99.0); MEAN PLATELET VOLUME 9.1 fl (7.4-10.4); MONOCYTES % 7.6 % (2.0-8.0); NEUTROPHILS % 69.6 % (40.0-76.0); PLATELET 148 x1000/uL (130-400); RED BLOOD CELL COUNT 4.22 mill/uL (4.2-5.4); RED CELL DISTRIBUTION WIDTH 16.3 % (11.6-14.6)
[2018-09-25] MEDS: CARVEDILOL 3.125 MG TABLET PO SCH (09:14)
[2018-09-25] MEDS: ASPIRIN 81MG EC TABLET PO SCH (09:14)
[2018-09-25] MEDS: ENOXAPARIN 30MG/0.3ML SYR SUBCUT SCH (13:16)
[2018-09-25] MEDS: CARVEDILOL 6.25 MG TABLET PO SCH (20:49)
[2018-09-26] VITALS (10 sets, daily range): BP systolic 98–117; BP diastolic 57–77
[2018-09-26] MEDS: ACETAMINOPHEN 325MG TABLET PO PRN (01:04)
[2018-09-26] MEDS: CARVEDILOL 6.25 MG TABLET PO SCH (09:00)
[2018-09-26] MEDS: ASPIRIN 81MG EC TABLET PO SCH (09:49)
[2018-09-26] MEDS: ENOXAPARIN 30MG/0.3ML SYR SUBCUT SCH (13:17)
== END 2018-09-26 17:10 | disposition home health service (06) | DRG 682 ==
LOC: ER 01:31 → 6WST 05:52 → EDBEDREQ 05:54 → EDBEDREQTM 05:54 → EDBEDREQSVC 05:54 → ENRESERV 08:53 → 5EST 09-22 11:04
PROVIDERS: ADMIT Internal Medicine; ATTEND Internal Medicine
DX: N17.9 Acute kidney failure, unspecified (principal); I50.43 Acute on chronic combined systolic (congestive) and diastolic (congestive) heart failure; I13.0 Hypertensive heart and chronic kidney disease with heart failure and stage 1 through stage 4 chronic kidney disease, or unspecified chronic kidney disease; J44.1 Chronic obstructive pulmonary disease with (acute) exacerbation; E87.2 Acidosis; N39.0 Urinary tract infection, site not specified; I42.0 Dilated cardiomyopathy; I27.21 Secondary pulmonary arterial hypertension; N18.2 Chronic kidney disease, stage 2 (mild); D63.8 Anemia in other chronic diseases classified elsewhere; I45.10 Unspecified right bundle-branch block; I73.9 Peripheral vascular disease, unspecified; I48.0 Paroxysmal atrial fibrillation; Z96.652 Presence of left artificial knee joint; I83.009 Varicose veins of unspecified lower extremity with ulcer of unspecified site; M19.90 Unspecified osteoarthritis, unspecified site; Z79.899 Other long term (current) drug therapy; Z88.9 Allergy status to unspecified drugs, medicaments and biological substances
CPT/HCPCS: 36415; 71045; 80048; 80061; 82550; 82553; 83605; 84145; 84439; 84443; 84484; 93005; 93306; 93970; 97162; 99285; C1893; J1250; J1650; J1956; J7030; J7050

== ENCOUNTER 2019-05-25 19:22 | Inpatient (IN) | payer MEDICARE, BC ==
[~2019-05-25] VITALS: Ht 162.6 cm; Wt 59.4 kg
[~2019-05-25 19:22] MED LIST changes: -ASPI-1393 PO; +ASPI-1497 PO; -MIDO5TAB PO; +MIDO5TAB4 PO
[2019-05-26] MEDS ORDERED: SODIUM CHLORIDE 0.9% 1,000 ML IV ONE (00:06)
[2019-05-26] MEDS ORDERED: ACETAMINOPHEN 325MG TABLET PO ONE (00:15)
[2019-05-26 00:56] LABS: BASOPHILS % 1.1 % (0.0-2.0); EOSINOPHILS % 0.2 % (0.0-5.0); HEMATOCRIT. 44.8 % (36.0-48.0); LYMPHOCYTES % 37.2 % (20.0-50.0); MEAN CORPUSCULAR HEMOGLOBIN 31.9 pg (28.0-32.0); MEAN CORPUSCULAR VOLUME 95.6 fL (81.0-99.0); MEAN PLATELET VOLUME 11.1 fl (7.4-10.4); MONOCYTES % 7.2 % (2.0-8.0); NEUTROPHILS % 54.3 % (40.0-76.0); PLATELET 156 x1000/uL (130-400); RED BLOOD CELL COUNT 4.69 mill/uL (4.2-5.4); RED CELL DISTRIBUTION WIDTH 15.3 % (11.6-14.6)
[2019-05-26 00:59] LABS: INR 1.2; PROTHROMBIN TIME 12.8 sec (9.6-11.0)
[2019-05-26 00:59] LABS: CLARITY URINE CLEAR (CLEAR); COLOR URINE YELLOW (YELLOW); KETONES URINE NEGATIVE (NEGATIVE); LEUKOCYTE ESTERASE URINE NEGATIVE (NEGATIVE); NITRITE URINE NEGATIVE (NEGATIVE); OCCULT BLOOD URINE NEGATIVE (NEGATIVE); PH URINE 5.5 (4.5-8.0); PROTEIN URINE TRACE (NEGATIVE); SPECIFIC GRAVITY URINE 1.013 (1.005-1.030); UROBILINOGEN URINE 0.2 E.U./dL (0.2-1.0)
[2019-05-26 01:01] LABS: CHLORIDE 107 mEq/L (98-107)
[2019-05-26] MEDS ORDERED: MIDO10TA MT ×2 (04:44→11:00)
[2019-05-26] MEDS ORDERED: METO5SOL19 PO (04:44)
[2019-05-26] MEDS ORDERED: FURO40TA5 MT ×2 (04:44→11:00)
[2019-05-26] MEDS ORDERED: OFLO5DRO3 EACHEYE ×2 (04:44→11:00)
[2019-05-26] MEDS ORDERED: POTA-9 MT ×2 (04:44→11:00)
[2019-05-26] MEDS ORDERED: MULT1TAB63 MT (04:44)
[2019-05-26] MEDS ORDERED: CARV3.1242 MT ×2 (04:44→11:00)
[2019-05-26 08:00] VITALS: BP 93/65
[2019-05-26 10:00] VITALS: BP 93/65
[2019-05-26] MEDS ORDERED: METO5TAB94 MT (11:00)
[2019-05-26] MEDS ORDERED: VITA400T9 MT (11:00)
[2019-05-26] MEDS ORDERED: SODIUM CHLORIDE 0.45% 1,000 ML IV ONE (11:00)
[2019-05-26 12:00] VITALS: BP 94/69
[2019-05-26] MEDS ORDERED: SODIUM POLYSTYRENE SULFONATE 15 G/60 ML BOT PO SCH (12:00)
[2019-05-26] MEDS ORDERED: ACETAMINOPHEN 325MG TABLET PO PRN (12:30)
[2019-05-26] MEDS ORDERED: ENOXAPARIN 40MG/0.4ML SYR SUBCUT SCH (12:30)
[2019-05-26] MEDS ORDERED: HYDROCODONE/ACETAMINOPHEN 5/325MG TABLET PO PRN (12:30)
[2019-05-26] MEDS ORDERED: ONDANSETRON HCL 4MG/2ML INJ IV PRN (12:30)
[2019-05-26] MEDS ORDERED: IPRATROPIUM/ALBUTEROL 0.5-3(2.5)MG/3ML NEB HHN PRN (12:30)
[2019-05-26] MEDS ORDERED: SODIUM POLYSTYRENE SULFONATE 15 G/60 ML BOT PO NR (14:00)
[2019-05-26] MEDS: ENOXAPARIN 30MG/0.3ML SYR SUBCUT SCH (14:13)
[2019-05-26 15:43] LABS: HEMATOCRIT 39.7 % (36.0-48.0); HEMOGLOBIN 13.6 g/dL (12.0-16.0); MEAN CORPUSCULAR HEMOGLOBIN 32.6 pg (28.0-32.0); MEAN CORPUSCULAR VOLUME 95.2 fL (81.0-99.0); PLATELET 127 x1000/uL (130-400); RED BLOOD CELL COUNT 4.18 mill/uL (4.2-5.4); RED CELL DISTRIBUTION WIDTH 14.8 % (11.6-14.6)
[2019-05-26 16:00] VITALS: BP 102/71
[2019-05-26] MEDS ORDERED: FUROSEMIDE 40MG TABLET PO SCH (18:00)
[2019-05-26] MEDS: MIDODRINE HCL 5MG TABLET PO SCH (18:50)
[2019-05-26 20:00] VITALS: BP 98/68
[2019-05-26] MEDS ORDERED: PREGABALIN 75MG CAPSULE PO SCH (21:00)
[2019-05-27] VITALS: BP 109/70
[2019-05-27 04:00] VITALS: BP 110/79
[2019-05-27 06:37] LABS: BASOPHILS % 0.6 % (0.0-2.0); EOSINOPHILS % 0.4 % (0.0-5.0); HEMATOCRIT. 40.2 % (36.0-48.0); HEMOGLOBIN. 13.7 g/dL (12.0-16.0); LYMPHOCYTES % 39.6 % (20.0-50.0); MEAN CORPUSCULAR HEMOGLOBIN 32.7 pg (28.0-32.0); MEAN CORPUSCULAR VOLUME 96.2 fL (81.0-99.0); MEAN PLATELET VOLUME 10.7 fl (7.4-10.4); MONOCYTES % 8.7 % (2.0-8.0); NEUTROPHILS % 50.7 % (40.0-76.0); PLATELET 117 x1000/uL (130-400); RED BLOOD CELL COUNT 4.18 mill/uL (4.2-5.4); RED CELL DISTRIBUTION WIDTH 14.9 % (11.6-14.6)
[2019-05-27 06:43] LABS: CHLORIDE 111 mEq/L (98-107)
[2019-05-27 06:55] LABS: LDL CHOLESTEROL 91 mg/dL (5-100)
[2019-05-27 06:57] LABS: HDL CHOLESTEROL 82 mg/dL (40-59)
[2019-05-27 06:58] LABS: T4 FREE 1.05 ng/dL (0.76-1.46)
[2019-05-27 08:00] VITALS: BP 113/78
[2019-05-27] MEDS ORDERED: ASPIRIN 81MG EC TABLET PO SCH (09:00)
[2019-05-27] MEDS: MIDODRINE HCL 5MG TABLET PO SCH ×3 (09:06→17:00)
[2019-05-27] MEDS ORDERED: PIPERACILLIN/TAZOBACTAM 2.25 G in DEXTROSE 5% WATER 50 ML IV SCH (10:00)
[2019-05-27 12:00] VITALS: BP 94/72
[2019-05-27] MEDS: ENOXAPARIN 30MG/0.3ML SYR SUBCUT SCH (12:41)
[2019-05-27] MEDS ORDERED: CIPR250S3 MT (13:56)
[2019-05-27 14:25] VITALS: BP 94/72
[2019-05-27 16:00] VITALS: BP 106/70
== END 2019-05-27 18:47 | disposition home or self-care (01) | DRG 593 ==
LOC: ER 19:22 → EDBEDREQTM 05-26 02:52 → EDBEDREQSVC 05-26 02:52 → EDBEDREQ 05-26 02:52 → 6EST 05-26 05:55 → ENRESERV 05-26 08:13
PROVIDERS: ADMIT Internal Medicine; ATTEND Internal Medicine
DX: L97.528 Non-pressure chronic ulcer of other part of left foot with other specified severity (principal); N17.9 Acute kidney failure, unspecified; I13.0 Hypertensive heart and chronic kidney disease with heart failure and stage 1 through stage 4 chronic kidney disease, or unspecified chronic kidney disease; I42.0 Dilated cardiomyopathy; I50.22 Chronic systolic (congestive) heart failure; D63.8 Anemia in other chronic diseases classified elsewhere; D69.6 Thrombocytopenia, unspecified; D72.819 Decreased white blood cell count, unspecified; E87.5 Hyperkalemia; I25.10 Atherosclerotic heart disease of native coronary artery without angina pectoris; I27.20 Pulmonary hypertension, unspecified; M21.42 Flat foot [pes planus] (acquired), left foot; M21.41 Flat foot [pes planus] (acquired), right foot; M21.612 Bunion of left foot; M21.611 Bunion of right foot; M20.12 Hallux valgus (acquired), left foot; M20.11 Hallux valgus (acquired), right foot; Z96.659 Presence of unspecified artificial knee joint; I45.10 Unspecified right bundle-branch block; M19.079 Primary osteoarthritis, unspecified ankle and foot; M20.42 Other hammer toe(s) (acquired), left foot; M20.41 Other hammer toe(s) (acquired), right foot; I49.5 Sick sinus syndrome; J44.9 Chronic obstructive pulmonary disease, unspecified; N18.9 Chronic kidney disease, unspecified; Z95.0 Presence of cardiac pacemaker; Z79.899 Other long term (current) drug therapy; Z79.82 Long term (current) use of aspirin; Z88.8 Allergy status to other drugs, medicaments and biological substances
CPT/HCPCS: 36415; 73630; 80048; 80053; 80061; 81003; 82550; 83880; 84439; 84443; 84484; 85025; 85027; 93005; 93923; 93970; 99285; J1650; J2543; J7030; J7060

== ENCOUNTER 2019-08-15 16:22 | Inpatient (IN) | payer MEDICARE, BC ==
[~2019-08-15] VITALS: Ht 152.4 cm; Wt 49.7 kg
[~2019-08-15 16:22] MED LIST changes: +CARV3.1242 MT; +CIPR250S3 MT; +FURO40TA5 MT; +METO5SOL19 PO; +METO5TAB94 MT; +OFLO5DRO3 EACHEYE; +VITA400T9 MT
[2019-08-15] MEDS ORDERED: LORAZEPAM 0.5MG TABLET PO PRN (16:45)
[2019-08-15] MEDS ORDERED: HYDROCODONE/ACETAMINOPHEN 5/325MG TABLET PO PRN (16:45)
[2019-08-15] MEDS ORDERED: ACETAMINOPHEN 325MG TABLET PO PRN (16:45)
[2019-08-15] MEDS ORDERED: ONDANSETRON HCL 4MG/2ML INJ IV PRN (16:45)
[2019-08-15] MEDS ORDERED: IPRATROPIUM/ALBUTEROL 0.5-3(2.5)MG/3ML NEB NEB PRN (16:45)
[2019-08-15] MEDS ORDERED: MAGNESIUM/ALUMINUM HYDROXIDE/SIMETHICONE 30ML UDC PO PRN (16:45)
[2019-08-15] MEDS ORDERED: ACETAMINOPHEN 650MG SUPP PR PRN (16:45)
[2019-08-15] MEDS ORDERED: CLONIDINE 0.1MG TABLET PO PRN (16:45)
[2019-08-15] MEDS ORDERED: MIDODRINE HCL 5MG TABLET PO PRN (16:45)
[2019-08-15] MEDS ORDERED: NA PHOS,M-B/NA PHOS,DI-BA ENEMA 118ML PR PRN (16:45)
[2019-08-15] MEDS ORDERED: GUAIFENESIN 200MG/10ML SUGAR FREE UDC PO PRN (16:45)
[2019-08-15] MEDS ORDERED: FUROSEMIDE 40MG/4ML VIAL IVP SCH (17:00)
[2019-08-15 17:13] VITALS: BP 136/65
[2019-08-15 17:26] LABS: BG BASE EXCESS -7.8 mmol/L (-2.0-2.0); BG CARBOXYHEMOGLOBIN 0.3 % (0.5-1.5); BG DEOXYHEMOGLOBIN 2.5 % (0.0-5.0); BG FRACTION INSPIRED OXYGEN 21; BG HCO3 ACT 11.4 mmol/L (22.0-26.0); BG METHEMOGLOBIN 0.5 % (0.0-1.5); BG OXYGEN SATURATION 97.5 % (92.0-98.5); BG OXYHEMOGLOBIN 96.7 % (94.0-97.0); BG PCO2 15.7 mmHg (35.0-45.0); BG PO2 100.5 mmHg (75.0-100.0); BG SAMPLE SITE RIGHT BRACHIAL; BG VENT MODE ROOM AIR
[2019-08-15] MEDS ORDERED: DOBUTAMINE 250MG PREMIX 250 ML IV PRN (18:15)
[2019-08-15 18:16] VITALS: BP 108/47
[2019-08-15 18:32] VITALS: BP 135/65
[2019-08-15] MEDS ORDERED: MIDO10TA PO (18:41)
[2019-08-15] MEDS ORDERED: POTA-81 PO (18:42)
[2019-08-15 18:47] LABS: HEMATOCRIT 55.6 % (36.0-48.0); HEMOGLOBIN 18.2 g/dL (12.0-16.0); MEAN CORPUSCULAR HEMOGLOBIN 27.6 pg (28.0-32.0); MEAN CORPUSCULAR VOLUME 84.2 fL (81.0-99.0); RED CELL DISTRIBUTION WIDTH 20.6 % (11.6-14.6)
[2019-08-15 18:50] LABS: CHLORIDE 94 mEq/L (98-107)
[2019-08-15 18:51] LABS: INR 1.3; PROTHROMBIN TIME 13.6 sec (9.6-11.0)
[2019-08-15] MEDS: DOBUTAMINE 250MG PREMIX 250 ML IV PRN (19:14)
[2019-08-15 19:18] LABS: PLATELET 119 x1000/uL (130-400)
[2019-08-15 20:00] VITALS: BP 141/81
[2019-08-15] MEDS: FAMOTIDINE 20MG TABLET PO SCH (21:22)
[2019-08-15] MEDS: MIDODRINE HCL 5MG TABLET PO SCH (21:23)
[2019-08-15] MEDS: DEXT 5%/0.45% NACL 1000ML 1,000 ML IV SCH (21:24)
[2019-08-15 22:00] VITALS: BP 102/76
[2019-08-15 23:22] LABS: CLARITY URINE CLEAR (CLEAR); COLOR URINE DARK YELLOW (YELLOW); KETONES URINE NEGATIVE (NEGATIVE); LEUKOCYTE ESTERASE URINE 3+ (NEGATIVE); NITRITE URINE NEGATIVE (NEGATIVE); OCCULT BLOOD URINE TRACE (NEGATIVE); PROTEIN URINE TRACE (NEGATIVE); SPECIFIC GRAVITY URINE 1.011 (1.005-1.030)
[2019-08-15 23:46] LABS: *AMPHETAMINES SCREEN URINE NEGATIVE (NEGATIVE); *BARBITURATES SCREEN URINE NEGATIVE (NEGATIVE); CANNABINOID URINE SCREEN NEGATIVE (NEGATIVE); METHADONE URINE SCREEN NEGATIVE (NEGATIVE); OPIATES URINE SCREEN NEGATIVE (NEGATIVE); PHENCYCLIDINE URINE SCREEN NEGATIVE (NEGATIVE)
[2019-08-15 23:47] LABS: *BENZODIAZEPINES SCREEN URINE NEGATIVE (NEGATIVE); *COCAINE SCREEN URINE NEGATIVE (NEGATIVE)
[2019-08-16] VITALS (12 sets, daily range): BP systolic 100–137; BP diastolic 41–87
[2019-08-16] MEDS: DOBUTAMINE 250MG PREMIX 250 ML IV PRN ×2 (05:02→14:56)
[2019-08-16] MEDS: MIDODRINE HCL 5MG TABLET PO SCH (06:26)
[2019-08-16 10:06] LABS: HEMATOCRIT. 52.6 % (36.0-48.0); HEMOGLOBIN. 17.3 g/dL (12.0-16.0); MEAN CORPUSCULAR HEMOGLOBIN 27.9 pg (28.0-32.0); MEAN CORPUSCULAR VOLUME 84.7 fL (81.0-99.0); RED BLOOD CELL COUNT 6.21 mill/uL (4.2-5.4); RED CELL DISTRIBUTION WIDTH 19.8 % (11.6-14.6)
[2019-08-16 11:29] LABS: PLATELET ESTIMATE DECREASED
[2019-08-16 11:30] LABS: MEAN PLATELET VOLUME 9.8 fl (7.4-10.4); PLATELET 91 x1000/uL (130-400)
[2019-08-16] MEDS: CARVEDILOL 3.125 MG TABLET PO SCH ×2 (12:56→21:00)
[2019-08-16] MEDS ORDERED: LEVOFLOXACIN 250MG PREMIX 50 ML IV SCH (13:00)
[2019-08-16] MEDS: MIDODRINE HCL 2.5MG TABLET PO SCH ×2 (13:36→17:23)
[2019-08-16] MEDS: DEXT 5%/0.45% NACL 1000ML 1,000 ML IV SCH (14:44)
[2019-08-16] MEDS: DIPHENHYDRAMINE 50MG/ML VIAL IV PRN (14:45)
[2019-08-16 17:02] LABS: CHLORIDE 92 mEq/L (98-107)
[2019-08-16 17:10] LABS: LDL CHOLESTEROL 106 mg/dL (5-100)
[2019-08-16 17:11] LABS: CREATINE KINASE 111 IU/L (26-192); CREATINE KINASE MB FRACTION 1.7 ng/mL (0.5-3.6); HDL CHOLESTEROL 43 mg/dL (40-59); T4 FREE 0.89 ng/dL (0.76-1.46)
[2019-08-16] MEDS ORDERED: POTASSIUM CHLORIDE 20MEQ TABLET SR PO NR (20:19)
[2019-08-16] MEDS: FAMOTIDINE 20MG TABLET PO SCH (21:16)
[2019-08-17] VITALS (11 sets, daily range): BP systolic 88–113; BP diastolic 37–83
[2019-08-17] MEDS: DOBUTAMINE 250MG PREMIX 250 ML IV PRN (02:16)
[2019-08-17 07:10] LABS: BASOPHILS % 0.2 % (0.0-2.0); EOSINOPHILS % 0.3 % (0.0-5.0); HEMATOCRIT. 47.6 % (36.0-48.0); HEMOGLOBIN. 15.9 g/dL (12.0-16.0); LYMPHOCYTES % 12.7 % (20.0-50.0); MEAN CORPUSCULAR HEMOGLOBIN 27.9 pg (28.0-32.0); MEAN CORPUSCULAR VOLUME 83.7 fL (81.0-99.0); MEAN PLATELET VOLUME 11.2 fl (7.4-10.4); MONOCYTES % 3.1 % (2.0-8.0); NEUTROPHILS % 83.7 % (40.0-76.0); PLATELET 84 x1000/uL (130-400); RED BLOOD CELL COUNT 5.68 mill/uL (4.2-5.4); RED CELL DISTRIBUTION WIDTH 19.9 % (11.6-14.6)
[2019-08-17] MEDS: MIDODRINE HCL 2.5MG TABLET PO SCH ×3 (08:36→18:03)
[2019-08-17] MEDS: CARVEDILOL 3.125 MG TABLET PO SCH ×2 (08:36→21:00)
[2019-08-17] MEDS ORDERED: DOBUTAMINE 250MG PREMIX 250 ML IV PRN (08:42)
[2019-08-17] MEDS: DOBUTAMINE 250MG PREMIX 250 ML IV SCH ×2 (09:24→15:27)
[2019-08-17] MEDS ORDERED: KCL 20MEQ/100ML PREMIX 100 ML IV NR ×2 (10:00→21:00)
[2019-08-17] MEDS: DEXT 5%/0.45% NACL 1000ML 1,000 ML IV SCH (12:01)
[2019-08-17] MEDS: FAMOTIDINE 20MG TABLET PO SCH (21:36)
[2019-08-18] VITALS (12 sets, daily range): BP systolic 90–139; BP diastolic 25–67
[2019-08-18] MEDS: DEXT 5%/0.45% NACL 1000ML 1,000 ML IV SCH (06:52)
[2019-08-18 07:40] LABS: HEMATOCRIT. 48.9 % (36.0-48.0); HEMOGLOBIN. 16.7 g/dL (12.0-16.0); MEAN CORPUSCULAR HEMOGLOBIN 28.2 pg (28.0-32.0); MEAN CORPUSCULAR VOLUME 82.5 fL (81.0-99.0); RED BLOOD CELL COUNT 5.93 mill/uL (4.2-5.4); RED CELL DISTRIBUTION WIDTH 19.6 % (11.6-14.6)
[2019-08-18] MEDS: POTASSIUM CHLORIDE 20MEQ/PACKET PO SCH ×2 (08:18→08:20)
[2019-08-18] MEDS: MIDODRINE HCL 2.5MG TABLET PO SCH ×2 (08:31→13:43)
[2019-08-18] MEDS: CARVEDILOL 3.125 MG TABLET PO SCH ×2 (08:34→21:00)
[2019-08-18] MEDS ORDERED: POTASSIUM CHLORIDE 20MEQ/PACKET PO ONE (09:00)
[2019-08-18 10:35] LABS: PLATELET ESTIMATE DECREASED
[2019-08-18] MEDS ORDERED: LEVOFLOXACIN 250MG TABLET PO SCH (11:00)
[2019-08-18] MEDS: DOBUTAMINE 250MG PREMIX 250 ML IV SCH (11:53)
[2019-08-18] MEDS: DOCUSATE SODIUM 100MG CAPSULE PO PRN (13:42)
[2019-08-18] MEDS ORDERED: POTASSIUM CHLORIDE 20MEQ TABLET SR PO SCH (14:00)
[2019-08-18] MEDS ORDERED: POTASSIUM CHLORIDE INJ 40 MEQ in DEXT 5% WATER 250 ML IV NR (16:00)
[2019-08-18] MEDS: MIDODRINE HCL 5MG TABLET PO SCH (17:09)
[2019-08-18] MEDS: FAMOTIDINE 20MG TABLET PO SCH (21:19)
[2019-08-19] VITALS (16 sets, daily range): BP systolic 63–151; BP diastolic 31–64
[2019-08-19 06:08] LABS: BASOPHILS % 0.3 % (0.0-2.0); EOSINOPHILS % 1.4 % (0.0-5.0); HEMATOCRIT. 50.1 % (36.0-48.0); HEMOGLOBIN. 16.7 g/dL (12.0-16.0); LYMPHOCYTES % 23.3 % (20.0-50.0); MEAN CORPUSCULAR HEMOGLOBIN 28.1 pg (28.0-32.0); MEAN PLATELET VOLUME 9.9 fl (7.4-10.4); MONOCYTES % 6.6 % (2.0-8.0); NEUTROPHILS % 68.4 % (40.0-76.0); PLATELET 72 x1000/uL (130-400); RED BLOOD CELL COUNT 5.97 mill/uL (4.2-5.4); RED CELL DISTRIBUTION WIDTH 19.6 % (11.6-14.6)
[2019-08-19] MEDS: MIDODRINE HCL 5MG TABLET PO SCH ×3 (08:08→17:24)
[2019-08-19] MEDS: CARVEDILOL 3.125 MG TABLET PO SCH ×2 (08:15→22:52)
[2019-08-19] MEDS ORDERED: HEPARIN 5000 UNITS/ML VIAL SUBCUT SCH (09:00)
[2019-08-19] MEDS ORDERED: ALBUMIN HUMAN 25GM/500ML (5%) IV SCH (09:00)
[2019-08-19] MEDS: DOCUSATE SODIUM 100MG CAPSULE PO PRN (15:00)
[2019-08-19] MEDS: MEGESTROL ACETATE 400 MG/10 ML UDC PO SCH (15:00)
[2019-08-19] MEDS: FAMOTIDINE 20MG TABLET PO SCH (22:40)
[2019-08-20] VITALS (21 sets, daily range): BP systolic 67–117; BP diastolic 16–58
[2019-08-20 08:13] LABS: BASOPHILS % 0.6 % (0.0-2.0); EOSINOPHILS % 0.5 % (0.0-5.0); HEMATOCRIT. 51.2 % (36.0-48.0); LYMPHOCYTES % 30.4 % (20.0-50.0); MEAN CORPUSCULAR HEMOGLOBIN 27.9 pg (28.0-32.0); MEAN CORPUSCULAR VOLUME 84.2 fL (81.0-99.0); MEAN PLATELET VOLUME 9.9 fl (7.4-10.4); MONOCYTES % 6.6 % (2.0-8.0); NEUTROPHILS % 61.9 % (40.0-76.0); PLATELET 101 x1000/uL (130-400); RED BLOOD CELL COUNT 6.08 mill/uL (4.2-5.4); RED CELL DISTRIBUTION WIDTH 20.1 % (11.6-14.6)
[2019-08-20] MEDS: MEGESTROL ACETATE 400 MG/10 ML UDC PO SCH (09:55)
[2019-08-20] MEDS: CARVEDILOL 3.125 MG TABLET PO SCH ×2 (09:56→21:00)
[2019-08-20] MEDS: MIDODRINE HCL 5MG TABLET PO SCH ×4 (09:57→21:08)
[2019-08-20] MEDS ORDERED: POTASSIUM CHLORIDE 20MEQ TABLET SR PO NR (11:00)
[2019-08-20] MEDS: LEVOFLOXACIN 250MG TABLET PO SCH (11:45)
[2019-08-20] MEDS: FAMOTIDINE 20MG TABLET PO SCH (21:08)
[2019-08-21] VITALS (12 sets, daily range): BP systolic 86–112; BP diastolic 43–63
[2019-08-21] MEDS: MIDODRINE HCL 5MG TABLET PO SCH ×4 (09:08→20:39)
[2019-08-21] MEDS: MEGESTROL ACETATE 400 MG/10 ML UDC PO SCH (09:08)
[2019-08-21] MEDS: CARVEDILOL 3.125 MG TABLET PO SCH ×2 (09:08→20:39)
[2019-08-21] MEDS: LEVOFLOXACIN 250MG TABLET PO SCH (11:08)
[2019-08-21 12:26] LABS: CHLORIDE 103 mEq/L (98-107)
[2019-08-21 12:31] LABS: HEMATOCRIT 47.8 % (36.0-48.0); HEMOGLOBIN 15.7 g/dL (12.0-16.0); MEAN CORPUSCULAR HEMOGLOBIN 27.6 pg (28.0-32.0); MEAN CORPUSCULAR VOLUME 83.6 fL (81.0-99.0); PLATELET 144 x1000/uL (130-400); RED BLOOD CELL COUNT 5.71 mill/uL (4.2-5.4); RED CELL DISTRIBUTION WIDTH 20.5 % (11.6-14.6)
[2019-08-21] MEDS ORDERED: POTASSIUM CHLORIDE 20MEQ TABLET SR PO NR (13:30)
[2019-08-21] MEDS ORDERED: POTASSIUM CHLORIDE 20MEQ/PACKET PO NR (14:15)
[2019-08-21] MEDS: FAMOTIDINE 20MG TABLET PO SCH (20:38)
[2019-08-22] VITALS (13 sets, daily range): BP systolic 82–119; BP diastolic 41–82
[2019-08-22] MEDS: MEGESTROL ACETATE 400 MG/10 ML UDC PO SCH (09:11)
[2019-08-22] MEDS: MIDODRINE HCL 5MG TABLET PO SCH ×4 (09:12→20:39)
[2019-08-22] MEDS: CARVEDILOL 3.125 MG TABLET PO SCH (09:12)
[2019-08-22] MEDS: FLUDROCORTISONE ACETATE 0.1MG TABLET PO SCH (13:33)
[2019-08-22] MEDS: FAMOTIDINE 20MG TABLET PO SCH (20:38)
[2019-08-22] MEDS: DIPHENHYDRAMINE 50MG/ML VIAL IV PRN (20:39)
[2019-08-23] VITALS (9 sets, daily range): BP systolic 89–100; BP diastolic 54–66
[2019-08-23] MEDS: FLUDROCORTISONE ACETATE 0.1MG TABLET PO SCH (09:03)
[2019-08-23] MEDS: MEGESTROL ACETATE 400 MG/10 ML UDC PO SCH (09:03)
[2019-08-23] MEDS: MIDODRINE HCL 5MG TABLET PO SCH ×2 (09:03→12:43)
[2019-08-23] MEDS ORDERED: FLOR MT (12:33)
[2019-08-23] MEDS ORDERED: MIDO10TA MT (12:33)
== END 2019-08-23 17:09 | disposition home health service (06) | DRG 280 ==
LOC: 3WST 16:22
PROVIDERS: ADMIT Internal Medicine; ATTEND Internal Medicine
DX: I13.0 Hypertensive heart and chronic kidney disease with heart failure and stage 1 through stage 4 chronic kidney disease, or unspecified chronic kidney disease (principal); E43 Unspecified severe protein-calorie malnutrition; I21.4 Non-ST elevation (NSTEMI) myocardial infarction; I50.43 Acute on chronic combined systolic (congestive) and diastolic (congestive) heart failure; N17.9 Acute kidney failure, unspecified; N39.0 Urinary tract infection, site not specified; G93.40 Encephalopathy, unspecified; E87.1 Hypo-osmolality and hyponatremia; I47.1 Supraventricular tachycardia; I42.0 Dilated cardiomyopathy; R62.7 Adult failure to thrive; I45.10 Unspecified right bundle-branch block; R53.81 Other malaise; I95.89 Other hypotension; D63.8 Anemia in other chronic diseases classified elsewhere; D69.6 Thrombocytopenia, unspecified; D75.1 Secondary polycythemia; I25.10 Atherosclerotic heart disease of native coronary artery without angina pectoris; I27.20 Pulmonary hypertension, unspecified; E86.0 Dehydration; I49.1 Atrial premature depolarization; J44.9 Chronic obstructive pulmonary disease, unspecified; N18.3 Chronic kidney disease, stage 3 (moderate); I87.8 Other specified disorders of veins; I08.1 Rheumatic disorders of both mitral and tricuspid valves; E87.6 Hypokalemia; T50.2X5A Adverse effect of carbonic-anhydrase inhibitors, benzothiadiazides and other diuretics, initial encounter; Y92.098 Other place in other non-institutional residence as the place of occurrence of the external cause; Z95.810 Presence of automatic (implantable) cardiac defibrillator; Z88.6 Allergy status to analgesic agent
CPT/HCPCS: 36415; 36600; 71045; 80048; 80053; 80061; 80076; 80305; 81003; 82140; 82375; 82550; 82553; 82805; 83735; 83880; 84439; 84443; 84484; 85007; 85025; 85027; 85049; 93005; 93306; 93970; 97110; 97162; 97530; J1200; J1250; J1956; J3480; J7060; P9041